=== PATIENT | female | born 1965 | race Caucasian/White ===

== ENCOUNTER 2017-09-15 06:25 | Observation (INO) | payer OTHER ==
[2017-09-13 10:14] LABS: BASOPHILS % 0.5 % (0.0-1.0); EOSINOPHILS # (AUTO) 0.1 (0.0-0.4); EOSINOPHILS % 0.8 % (0.0-6.0); HEMATOCRIT 41.3 % (34.2-44.1); HEMOGLOBIN 13.5 g/dL (12.0-16.0); MEAN CORPUSCULAR HEMOGLOBIN 30.8 pg (28-32); MEAN CORPUSCULAR HGB CONC 32.7 g/dL (31-35); MEAN CORPUSCULAR VOLUME 94.3 fL (81-99); MONOCYTES # (AUTO) 0.5 (0.2-0.8); MONOCYTES % 8.6 % (4.4-11.3); NEUTROPHILS # (AUTO) 3.3 (2.1-6.9); NEUTROPHILS % 55.1 % (38.7-80.0); PLATELET COUNT 290 x10e3/uL (140-360); RED BLOOD COUNT 4.38 x10e6/uL (3.6-5.1); RED CELL DISTRIBUTION WIDTH 12.9 % (11.7-14.4)
[2017-09-13 10:31] LABS: INR 0.88; PROTHROMBIN TIME 12.4 seconds (11.9-14.5)
[2017-09-13 10:32] LABS: ANION GAP 13.3 mmol/L (8-16); BLOOD UREA NITROGEN 12 mg/dL (7-26); BUN/CREATININE RATIO 17 (6-25); CALCIUM 9.5 mg/dL (8.4-10.2); CARBON DIOXIDE 27 mmol/L (22-29); CHLORIDE 103 mmol/L (98-107); CREATININE, SERUM 0.69 mg/dL (0.57-1.11); EST GLOMERULAR FILTRATION RATE > 60 ML/MIN (60-); GLUCOSE 105 mg/dL (74-118); PARTIAL THROMBOPLASTIN TIME 26.6 seconds (23.8-35.5); POTASSIUM 4.3 mmol/L (3.5-5.1); SODIUM 139 mmol/L (136-145)
--- NOTE | 2017-09-13 17:09 | Diagnostic Imaging Report ---
PROCEDURE: Frontal and lateral views of the chest. COMPARISON: None. INDICATIONS: PRE OPERATIVE FOR CERVICAL SPINE SURGERY FINDINGS: Lines/tubes: None. Lungs: The lungs are well inflated and clear. There is no evidence of pneumonia or pulmonary edema. Pleura: There is no pleural effusion or pneumothorax. Heart and mediastinum: The heart and the mediastinum are normal. Bones: No acute bony abnormality. IMPRESSION: No acute cardiopulmonary disease. Dictated by: Tim Nelson M.D. on 09/13/2017 at 17:18 Electronically approved by: Tim Nelson M.D. on 09/13/2017 at 17:18
[~2017-09-15] VITALS: Ht 162.6 cm; Wt 72.3 kg
[~2017-09-15 06:25] MED LIST: CELEBREX200 MG PO; CELEXA20 MG PO; ESTRACE0.5 MG PO; MOTRIN200 MG PO
[2017-09-15] MEDS ORDERED: CEFAZOLIN SOD 1 GM VIAL ONE (06:36)
[2017-09-15] MEDS ORDERED: LIDOCAINE 1% W/EPINEPHRINE 20 ML VIAL ONE (06:43)
[2017-09-15] MEDS ORDERED: GELATIN SPONGE SZ 100 ONE (06:43)
[2017-09-15] MEDS ORDERED: THROMBIN FOR SOLN 5,000 UNIT VIAL ONE (06:43)
[2017-09-15] MEDS ORDERED: BACITRACIN 50,000 UNIT VIAL ONE (06:43)
[2017-09-15] MEDS ORDERED: ACETAMINOPHEN 1000 MG/100 ML 100 ML IV ONE (07:04)
[2017-09-15] MEDS ORDERED: LIDOCAINE HCL (LTA) 4 ML SOLN ONE (07:05)
[2017-09-15] MEDS ORDERED: HYDROMORPHONE 2MG/ML INJ IV PRN (10:45)
[2017-09-15] MEDS ORDERED: MORPHINE SULFATE 5 MG/ML VIAL IM PRN (10:45)
[2017-09-15] MEDS ORDERED: ZOLPIDEM TARTRATE 5 MG TAB PO PRN (10:45)
[2017-09-15] MEDS ORDERED: ONDANSETRON HCL INJ 2 MG/ML VIAL IV PRN (10:45)
[2017-09-15] MEDS ORDERED: CARISOPRODOL 350 MG TAB PO PRN (10:45)
[2017-09-15] MEDS ORDERED: MAGNESIUM/ALUMINUM/SIMETHICONE 30 ML UDC PO PRN (10:45)
[2017-09-15] MEDS ORDERED: PROMETHAZINE HCL (IM) 25 MG/ML VIAL IM PRN (10:45)
[2017-09-15] MEDS ORDERED: ACETAMINOPHEN 325 MG TAB PO PRN (10:45)
[2017-09-15] MEDS ORDERED: FENTANYL CITRATE/PF 100MCG/2 ML INJ ONE ×2 (11:10→18:55)
[2017-09-15] MEDS ORDERED: ONDANSETRON HCL INJ 2 MG/ML VIAL ONE ×2 (11:23→17:51)
[2017-09-15 11:47] VITALS: BP 128/78
--- NOTE | 2017-09-15 11:53 | Operative Report ---
DATE OF PROCEDURE: September 15, 2017 PREOPERATIVE DIAGNOSIS: C3-4 and C4-5 spondylosis and spinal stenosis with radiculopathy, M50.120. POSTOPERATIVE DIAGNOSIS: C3-4 and C4-5 spondylosis and spinal stenosis with radiculopathy, M50.120. PROCEDURES 1. C3-4 anterior cervical diskectomy and microsurgical osteophyte resection and allograft fusion, 76645. 2. C4-5 anterior cervical diskectomy and microsurgical osteophyte resection and allograft fusion . 3. Iliac crest allograft preparation, [id number]. 4. C3-4 and C4-5 anterior cervical plating, [id number]. ANESTHESIA: General. 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 The patient was taken to the operating room for a 2-level anterior cervical decompression and fusion. DESCRIPTION OF PROCEDURE: After induction of general anesthesia, the patient was placed on the operating table in supine position. The right side of the neck was prepped and draped in sterile fashion. The fluoroscopic C-arm was positioned in cross-table lateral orientation. A transverse incision was created on the right side of the neck superimposed on the C4 vertebral body as determined by fluoroscopy. The platysma was divided in line with the incision. A subplatysmal dissection was carried out. An avascular plane of dissection was developed medial to the sternocleidomastoid muscle that was followed medial to the carotid sheath to the anterior border of the cervical spine. The deep cervical fascia was opened. The esophagus was retracted to the left. The attachments of longus colli muscles to the anterolateral aspects of the vertebral bodies of C3, C4, and C5 were divided. The anterior longitudinal ligament was resected. Rosamond posts were inserted into C3 and C5. The Rosamond distractor was used to distract both disk spaces simultaneously. The anterior annuli of disks were incised with a #11 blade. The contents of both disks were thoroughly evacuated with angled curettes and pituitary rongeurs. The posterior osteophytes were meticulously drilled with a 2-mm cutting ed until they were completely removed. The posterior annulus of the disk, herniated disk material, and the posterior longitudinal ligament were resected layer by layer until the dura was fully exposed and decompressed. The medial aspects of the uncinate processes were resected bilaterally to further expose and decompress the origins of the corresponding nerve roots. After satisfactory decompression had been achieved, the endplates were prepared for fusion. Two pieces of tricortical iliac crest allograft were cut to size and shapes of the disk spaces and were inserted into the disk spaces under distraction and fluoroscopic guidance. The distraction was released and the distraction posts were removed. A [employer]ynthes CSLP variable-type anterior cervical plate was selected and affixed to vertebral bodies of C3, C4, and C5 with 3 pairs of screws. The screws at C4 and C5 were 14 mm in length whereas the screws in C3 were 16 mm in length. All screw holes were drilled and tapped under lateral fluoroscopic guidance. All screws were locked with the appropriate locking screws. An excellent construct was obtained. The wound was copiously irrigated with bacitracin solution. Meticulous hemostasis was secured. Retractor was removed. The platysma was closed with 3-0 Vicryl sutures. The skin was closed with 4-0 Monocryl sutures in subcuticular fashion. Steri-Strips and dressing were applied. The patient was awakened, extubated, and taken to postanesthesia care unit in stable condition. No intraoperative complications were encountered. Estimated blood loss was 30 mL. Job#: [id number] SAK
[2017-09-15] MEDS: LACTATED RINGER'S 1,000 ML IV SCH ×2 (12:40→18:41)
[2017-09-15] MEDS: OXYCODONE/ACETAMINOPHEN 5-325 1 EACH TABLET PO PRN ×2 (12:56→22:38)
[2017-09-15] MEDS: CEFAZOLIN SOD 1 GM VIAL IV SCH ×2 (13:09→22:37)
[2017-09-15 13:18] VITALS: BP 128/78
[2017-09-15] MEDS ORDERED: CEFAZOLIN SOD 1 GM/NS 50ML 50 ML IV SCH (14:00)
[2017-09-15 15:29] VITALS: BP 152/75
[2017-09-15] MEDS ORDERED: NEOSTIGMINE 5 MG/5ML SYR ONE (17:51)
[2017-09-15] MEDS ORDERED: DEXAMETHASONE SOD PHOS INJ 4 MG/ML VIAL ONE (17:51)
[2017-09-15] MEDS ORDERED: ROCURONIUM BROMIDE 10 MG/ML 5ML VIAL ONE (17:51)
[2017-09-15] MEDS ORDERED: SEVOFLURANE INHAL SOLN 250 ML PEN BTL ONE (17:51)
[2017-09-15] MEDS ORDERED: LIDOCAINE HCL 2% LOCAL INJ 5 ML SDV VIAL INJ ONE (17:51)
[2017-09-15] MEDS ORDERED: PROPOFOL IV EMULSION 10 MG/ML 20 ML VIAL ONE (17:51)
[2017-09-15] MEDS ORDERED: GLYCOPYRROLATE INJ 1MG/ 5 ML SYR ONE (17:51)
[2017-09-15] MEDS ORDERED: CEPACOL SORE THROAT LOZENGES PO PRN (18:15)
[2017-09-15] MEDS ORDERED: MIDAZOLAM HCL 2 MG/2 ML VIAL ONE (18:55)
[2017-09-15 19:05] VITALS: BP 183/93
[2017-09-16] VITALS: BP_SYST 151; BP_SYST 165; BP_DIAS 74; BP_DIAS 78
[2017-09-16] MEDS: LACTATED RINGER'S 1,000 ML IV SCH (04:19)
[2017-09-16 05:00] VITALS: BP 129/62
[2017-09-16] MEDS: CEFAZOLIN SOD 1 GM VIAL IV SCH (05:37)
--- NOTE | 2017-09-16 07:50 | Diagnostic Imaging Report ---
PROCEDURE: X-RAY CERVICAL SPINE, TWO VIEWS COMPARISON:None. INDICATIONS:S/P SURGERY FINDINGS: See conclusion. CONCLUSION: AP and lateral views of the cervical spine from the skull base to C7 show anterior cervical spine surgical fusion from C3-C5 with intervertebral body disc spacers. The visualized vertebral bodies are well-aligned. Degenerative changes evidenced as anterior osteophytosis. The prevertebral soft tissues are normal. Dictated by: Maicol Mendosa M.D. on 09/16/2017 at 7:59 Electronically approved by: Maicol Mendosa M.D. on 09/16/2017 at 7:59
[2017-09-16 08:00] VITALS: BP 136/69
[2017-09-16 08:10] VITALS: BP 136/69
[2017-09-16] MEDS ORDERED: ESTRADIOL 0.5 MG PO SCH (09:00)
[2017-09-16] MEDS ORDERED: ESTRADIOL 1 MG TAB PO SCH (09:00)
[2017-09-16] MEDS: OXYCODONE/ACETAMINOPHEN 5-325 1 EACH TABLET PO PRN (09:11)
== END 2017-09-16 10:27 | disposition home or self-care (01) ==
LOC: OR 06:25 → IMCU 11:37
PROVIDERS: ADMIT Neurological Surgery; ATTEND Neurological Surgery
DX: M48.02 Spinal stenosis, cervical region (principal); M47.22 Other spondylosis with radiculopathy, cervical region
CPT/HCPCS: 20931; 22551; 22552; 22845; 36415; 71020; 72040; 77003; 80048; 85025; 85610; 85730; 86850; 86870; 86880; 86900; 86905; 88304; 93005; 99001; C1713 ×6; C1768; G0378 ×2; J0690 ×2; J1100; J2001; J2250; J2405; J2550; J7120; 71046

== ENCOUNTER → 2018-10-19 | Outpatient (RCR) | payer OTHER | LOC: PT 10-02 14:45 | PROVIDERS: ATTEND Neurological Surgery | DX: M50.120 Mid-cervical disc disorder, unspecified level (principal); M62.81 Muscle weakness (generalized); M53.82 Other specified dorsopathies, cervical region ==

== ENCOUNTER 2018-10-26 16:52 | Outpatient (RCR) | payer OTHER | END 2018-11-19 | LOC: PT 16:52 | PROVIDERS: ATTEND Neurological Surgery | DX: M50.120 Mid-cervical disc disorder, unspecified level (principal); M62.81 Muscle weakness (generalized); M53.82 Other specified dorsopathies, cervical region ==